=== PATIENT | female | born 1995 | race Caucasian/White ===

== ENCOUNTER 2024-05-29 22:13 | Emergency (ER) | payer BC ==
[2024-05-29 22:26] VITALS: TEMP 97.7
--- NOTE | 2024-05-29 23:28 | ED ---
Recheck HPI - General Chief Complaint: Recheck/Abnormal Lab/Rx Stated Complaint: Unable to sleep Time Seen by Provider: 05/29/24 23:27 Source: patient, RN notes reviewed Mode of arrival: ambulatory Limitations: no limitations - History of Present Illness Initial Comments: 28-year-old female presented to the ER for evaluation of insomnia. Patient is 1 week from a vaginal delivery completed at [facility]. Patient reports she was discharged on 3224. On Saturday she was notified that she was diagnosed with a UTI and started on Augmentin. She has been taking this twice daily for the past 4 days. Patient also reports since Saturday she has not been able to sleep. She believes the Augmentin may be contributing to this. She has tried Benadryl, [id number] melatonin, magnesium, sleep aids, teas, dark rooms, white noise without the ability to sleep. Patient contacted her OB out of [facility] who advised her to go to the nearest emergency department for further evaluation. Patient states she is currently breast- feeding as well and pumping/feeding every 3 hours. She states this is also contributing to her insomnia. She is considering no longer breast-feeding due to her insomnia. She denies any fevers, chills, nausea, vomiting, chest pain, shortness of breath, abdominal pain, constipation/diarrhea, excessive vaginal bleeding, urinary complaints or peripheral edema. - Related Data Previous Rx's Medication Instructions Recorded Melatonin 1 mg PO HS #10 tablet 05/29/24 Allergies Allergy/AdvReac Type Severity Reaction Status Date / Time tree nut Allergy Anaphylaxis Verified 05/29/24 22:27 Review of Systems ROS Statement: Those systems with pertinent positive or pertinent negative responses have been documented in the HPI. ROS Other: All systems not noted in ROS Statement are negative. Past Medical History Past Medical History: No Reported History History of Any Multi-Drug Resistant Organisms: None Reported Past Surgical History: Section Past Psychological History: No Psychological Hx Reported Smoking Status: Never smoker Past Alcohol Use History: None Reported Past Drug Use History: None Reported General Exam Limitations: no limitations General appearance: alert, in no apparent distress Respiratory exam: Present: normal lung sounds bilaterally. Absent: respiratory distress, wheezes, rales, rhonchi, stridor Cardiovascular Exam: Present: regular rate, normal rhythm, normal heart sounds. Absent: systolic murmur, diastolic murmur, rubs, gallop, clicks GI/Abdominal exam: Present: soft, normal bowel sounds. Absent: distended, tenderness, guarding, rebound, rigid Extremities exam: Present: normal inspection, full ROM, normal capillary refill. Absent: tenderness, pedal edema, joint swelling, calf tenderness Neurological exam: Present: alert, oriented X3, CN II-XII intact Psychiatric exam: Present: anxious Skin exam: Present: warm, dry, intact, normal color. Absent: rash Course Vital Signs 05/29/24 05/29/24 05/29/24 22:17 23:02 23:40 Temperature 97.7 F Pulse Rate 8 L 82 56 L Respiratory 18 16 Rate Blood Pressure 148/95 129/85 O2 Sat by Pulse 98 98 99 Oximetry Medical Decision Making - Medical Decision Making Was pt. sent in by a medical professional or institution (, PA, BRICK KILN BURNER, urgent care, hospital, or fdc...) When possible be specific @ -Patient instructed by PERSONAL FITNESS TRAINER out of [facility] to come to the ER for ev aluation of insomnia. Did you speak to anyone other than the patient for history (EMS, parent, family, police, friend...)? What history was obtained from this source @ -Patient's mother, at bedside, aiding in HPI and past medical history. Did you review nursing and triage notes (agree or disagree)? Why? @ -I reviewed and agree with nursing and triage notes Were old charts reviewed (outside hosp., previous admission, EMS record, old EKG, old radiological studies, urgent care reports/EKG's, fdc records)? Report findings @ -No old charts were reviewed Differential Diagnosis (chest pain, altered mental status, abdominal pain women, abdominal pain men, vaginal bleeding, weakness, fever, dyspnea, syncope, headache, dizziness, GI bleed, back pain, seizure, CVA, palpatations, mental health, musculoskeletal)? @ -Insomnia, anxiety, viral illness,... This list is not meant to be all inclusive EKG interpreted by me (3pts min.). @ -None done X-rays interpreted by me (1pt min.). @ -None done CT interpreted by me (1pt min.). @ -None done U/S interpreted by me (1pt. min.). @ -None done What testing was considered but not performed or refused? (CT, X-rays, U/S, labs)? Why? @ -Urine analysis considered. Patient left the ER prior to completion of this. What meds were considered but not given or refused? Why? @ -None Did you discuss the management of the patient with other professionals (professionals i.e. , PA, BRICK KILN BURNER, lab, RT, psych nurse, social security assessor, tool honing machine set up operator, teacher, promotions officer, community case manager)? Give summary @ -No Was smoking cessation discussed for >3mins.? @ -No Was critical care preformed (if so, how long)? @ -No Were there social determinants of health that impacted care today? How? (Homelessness, low income, unemployed, alcoholism, drug addiction, tr ansportation, low edu. Level, literacy, decrease access to med. care, longterm, rehab)? @ -No Was there de-escalation of care discussed even if they declined (Discuss DNR or withdrawal of care, Hospice)? DNR status @ -No What co-morbidities impacted this encounter? (DM, HTN, Smoking, COPD, CAD, Cancer, CVA, ARF, Chemo, Hep., AIDS, mental health diagnosis, sleep apnea, morbid obesity)? @ -1 week . Was patient admitted / discharged? Hospital course, mention meds given and route, prescriptions, significant lab abnormalities, going to OR and other pertinent info. @ -Discharge. 28-year-old female presenting to the ER for evaluation of insomnia. Patient is 1 week from a vaginal delivery. Vitals within acceptable limits. Upon examination, patient is extremely anxious. Patient has no signs of acute distress and nontoxic appearing. I discussed with patient numerous [id number] options including melatonin, Benadryl, sleep teas, and healthy sleep habits. Patient reports "I have tried everything [id number] and nothing is working". I also offered one-time dose of Ativan or Ambien to aid in sleep. She refused one-time dose of Ativan or Ambien as she is breast- feeding and cannot be sleeping for longer than 3 hours as she needs to breast- feed/pump to prevent mastitis. Patient is interested in stopping breast feeding as it is inhibiting her sleep. I advised her to follow-up with PERSONAL FITNESS TRAINER for further evaluation of this. Patient reports she has a support system at home including her , sister and mother. I did prescribe melatonin and ordered Ambien in the emergency department. Patient refused to take ambien. Patient has no other complaints. Patient discharged in stable condition with follow-up to PERSONAL FITNESS TRAINER for further evaluation. Return parameters discussed. Case discussed with ED attending of Dr. Roche who also evaluated patient. Undiagnosed new problem with uncertain prognosis? @ -No Drug Therapy requiring intensive monitoring for toxicity (Heparin, Nitro, Insulin, Cardizem)? @ -No Were any procedures done? @ -No Diagnosis/symptom? @ -Insomnia Acute, or Chronic, or Acute on Chronic? @ -Acute Uncomplicated (without systemic symptoms) or Complicated (systemic symptoms)? @ -Uncomplicated Side effects of treatment? @ -No Exacerbation, Progression, or Severe Exacerbation? @ -No Poses a threat to life or bodily function? How? (Chest pain, [place], [place], pneumonia, PE, COPD, DKA, ARF, appy, cholecystitis, CVA, Diverticulitis, Homicidal, Suicidal, threat to staff... and all critical care pts) @ -No Disposition Clinical Impression: Insomnia Disposition: HOME SELF-CARE Condition: Stable Instructions (If sedation given, give patient instructions): Insomnia (ED) Additional Instructions: Follow-up with PERSONAL FITNESS TRAINER. Return to the ER for any new or worsening symptoms. Prescriptions: Melatonin 1 mg PO HS #10 tablet Is patient prescribed a controlled substance at d/c from ED?: No Referrals: None,Stated [Primary Care Provider] - 1-2 days Ceci Read DO [Doctor of Osteopathic Medicine] - 1-2 days Time of Disposition: 23:28
[2024-05-29] MEDS: ZOLPIDEM 5 MG TAB PO STA (23:40)
[2024-05-29 23:42] VITALS: BP 129/85; PULSE 56; RESP 16
== END 2024-05-29 23:40 | disposition home or self-care (01) ==
LOC: EC 22:13
DX: O99.345 Other mental disorders complicating the puerperium (principal); G47.00 Insomnia, unspecified
CPT/HCPCS: 99283